=== PATIENT | male | born 1980 | race Caucasian/White ===

== ENCOUNTER 2016-09-12 23:18 | Emergency (ER) | payer OTHER ==
[~2016-09-12] VITALS: Ht 190.5 cm; Wt 80.2 kg
[~2016-09-12 23:18] MED LIST: ASPIR-LOW81 MG PO; ATIVAN1 MG PO; BUSPIRONE HCL10 MG PO; CARVEDILOL3.125 MG PO; CENTRUM COMPLE1 EACH PO; FLEXERIL10 MG PO; IBUPROFEN800 MG PO; INDOCIN50 MG PO; INDOMETHACIN50 MG PO; LISINOPRIL2.5 MG PO; LORAZEPAM0.5 MG PO; MOTRIN IB200 MG PO; MOTRIN600 MG PO; MOTRIN800 MG PO; NOHOMEMEDS; PEN-VEE K,VEET500 MG PO; TRAMADOL HCL50 MG PO; VENTOLIN HFA18 GM IH
[2016-09-13 02:34] VITALS: BP 124/74
== END 2016-09-13 02:35 | disposition home or self-care (01) ==
LOC: EME 23:18 → EXP 23:18
PROC: 0HQFXZZ Repair Right Hand Skin, External Approach (ICD-10-PCS; principal; 2016-09-12)
DX: S61.011A Laceration without foreign body of right thumb without damage to nail, initial encounter (principal); W25.XXXA Contact with sharp glass, initial encounter
CPT/HCPCS: 99281; 99284